=== PATIENT | male | born 1955 | race Two or more races ===

== ENCOUNTER 2025-02-19 03:53 | Inpatient (IN) | payer OTHER, MEDICAID ==
[~2025-02-19] VITALS: Ht 175.3 cm; Wt 98.2 kg
[2025-02-19 04:19] VITALS: PULSE 65; RESP 12; O2SAT 96
--- NOTE | 2025-02-19 04:53 | ED.PDOC ---
History of Present Illness HPI Comments 69 y/o obese M is BIBA from private residence for c/c of left chest wound. Patient reports on his surgical wound site opening yesterday morning, after having a pacemaker placed by his potable water treatment operator, Dr. Rene, 1 week ago. He comments on having uncontrolled bleeding initial bleeding that he awoke to, which was controlled following wound dressing placement by EMS personnel. Patient states on this being the second time on the stitching coming on done since yesterday, with the company ED visit at [facility]. He states later to CT chest at the hospital and discharged him home and told him his results were negative. Patient denies any further acute symptoms at this time. He is on Eliquis, however states that he did not take his dose last night due to bleeding. He denies any fever, cough, chest pain, shortness of breath, nausea, vomiting, headache, dizziness. Chief Complaint: Wound Check Time Seen by MD: 04:00 Reviewed Notes: Nurses Notes, Supervisor Gear Repair Notes, Medications, Allergies Allergies: Coded Allergies: NO KNOWN ALLERGIES (Unverified , 02/19/25) Information Source: Patient, Emergency Med Personnel Mode of Arrival: EMS Severity: Moderate Timing: Hours Duration: Since onset Prehospital treatment: 12 Lead EKG, Stereotype Molder, Other (Wound dressing) Past Medical History Past Medical History (Other): History of Eliquis use Surgical History: Pacemaker Family History Family History: Unknown All Other Systems: Reviewed and Negative (Comprehensive review of systems are negative unless otherwise stated in HPI) Physical Exam General Appearance: No Apparent Distress, Obese HEENT: Normal ENT Inspection, Pharynx Normal, TMs Normal Neck: Full Range of Motion, Non-Tender, Normal, Normal Inspection Respiratory: Chest Non-Tender, Lungs Clear, No Accessory Muscle Use, No Respiratory Distress, Normal Breath Sounds Cardiovascular: No Edema, No JVD, No Murmur, No Gallop, Normal Peripheral Pulses, Regular Rate/Rhythm Breast Exam: Deferred Gastrointestinal: No Organomegaly, Non Tender, No Pulsatile Mass, Normal Bowel Sounds, Soft Genitalia: Deferred Pelvic: Deferred Rectal: Deferred Extremities: No calf tenderness, Normal capillary refill, Normal inspection, Normal range of motion, Non-tender, No pedal edema Musculoskeletal : Apperance: Normal Neurologic: Alert, shop teacher II-XII nml as Tested, No Motor Deficits, Normal Affect, Normal Mood, No Sensory Deficits Cerebellar Function: Normal Reflexes: Normal Skin: Bruises (Large hematoma to left chest wall with wound dehiscence), Dry, Normal Color, Warm Lymphatic: No Adenopathy Was a procedure done? Was a procedure done?: No Differential Dx Considerations may include: Hematoma, ecchymosis, contusions, pacemaker procedure postop complication, wound dehiscence, among others X-Ray, Labs, Meds, VS Vital Signs Date Time Temp Pulse Resp B/P (MAP) Pulse Ox O2 Delivery O2 Flow Rate FiO2 02/19/25 04:19 65 12 96 Room Air* 0 21 02/19/25 04:18 97.9 65 12 149/87 (107) 96 97.9 02/19/25 04:02 98.2 72 18 122/82 98 98.2 Lab Test 02/19/25 04:59 Range/Units White Blood Count 6.9 4.4-10.8 10^3/uL Red Blood Count 3.67 L 4.5-5.90 10^6/uL Hemoglobin 11.0 L 13.5-17.5 g/dL Hematocrit 33.4 L 41.0-53.0 % Mean Corpuscular Volume 90.9 80.0-100.0 fL Mean Corpuscular Hemoglobin 30.1 28.0-32.0 pg Mean Corpuscular Hemoglobin Concent 33.1 32.0-36.0 g/dL Red Cell Distribution Width 15.8 H 11.8-14.3 % Platelet Count 85 L 140-450 10^3/uL Mean Platelet Volume 11.6 H 6.9-10.8 fL Neutrophils (%) (Auto) 57.8 37.0-80.0 % Lymphocytes (%) (Auto) 13.9 10.0-50.0 % Monocytes (%) (Auto) 27.8 H 0.0-12.0 % Eosinophils (%) (Auto) 0.0 0.0-7.0 % Basophils (%) (Auto) 0.5 0.0-2.0 % Neutrophils # (Auto) 4.0 1.6-8.6 10 ^3/uL Lymphocytes # (Auto) 1.0 0.4-5.4 10 ^3/uL Monocytes # (Auto) 1.9 H 0-1.3 10 ^3/uL Eosinophils # (Auto) 0 0-0.8 10 ^3/uL Basophils # (Auto) 0 0-0.2 10 ^3/uL Nucleated Red Blood Cells 0.2 % Prothrombin Time 12.9 H 9.3-11.8 sec Prothrombin Time INR 1.24 H 0.9-1.15 Activated Partial Thromboplast Time 32.3 24.5-34.5 SEC Sodium Level 140 136-145 mmol/L Potassium Level 3.7 3.5-5.1 mmol/L Chloride Level 107 98-107 mmol/L Carbon Dioxide Level 24 20-31 mmol/L Anion Gap 9 5-15 Blood Urea Nitrogen 18 9-23 mg/dL Creatinine 0.97 0.700-1.30 mg/dL Glomerular Filtration Rate Calc 86 >90 mL/min BUN/Creatinine Ratio 18.6 10.0-20.0 Serum Glucose 150 H 74-106 mg/dL Calcium Level 8.3 L 8.7-10.4 mg/dL X-Ray, Labs, Meds, VS Comment Patient presenting with persistent bleeding and will dehiscence from pacemaker surgical site done 1 week ago. Patient with wound dehiscence and large hematoma with ecchymoses on chest wall. Lab work (CBC, BMP) to evaluate for evidence of severe anemia, electrolyte abnormality including hypokalemia, hyperkalemia, hypernatremia, hyponatremia, hyperglycemia, hypoglycemia, etc. Chest x-ray to evaluate for pneumonia, pneumothorax with volume overload. Spoke to Dr. Rene, who recommends broad-spectrum IV antibiotics and admission for further management. Re-evaluate Social determinant surveillance affecting care: Social determinants of health that will affect the patient's care: Poor health literacy (additional time provided an explanation) Poor access to outpatient care/followup (provided outpatient resources) Time of 1ST Reevaluation: 04:40 Reevaluation 1ST: Unchanged Patient Education/Counseling: Diagnosis, Treatment Family Education/Counseling: No Family Present SEPSIS Sepsis Screen Date sepsis recognized/suspect: Feb 19, 2025 Time Sepsis recognized/suspect: 419 Recent Procedure: Yes On Antibiotic Therapy: No Respiratory Rate >20: Yes Heart Rate >90: No Temp<36 C (96.8 F) or >38.3 C: No SBP <90 or MAP <65 mmHG: No New Acute Mental Status Change: No Is the patient on CPAP, BIPAP,: No Physician Orders Chest Portable (02/19/25 04:13) Blood Culture (02/19/25 04:52) Vital Signs Date Time Temp Pulse Resp B/P (MAP) Pulse Ox O2 Delivery O2 Flow Rate FiO2 02/19/25 04:19 65 12 96 Room Air* 0 21 02/19/25 04:18 97.9 65 12 149/87 (107) 96 97.9 02/19/25 04:02 98.2 72 18 122/82 98 98.2 Laboratory Tests Test 02/19/25 04:59 White Blood Count 6.9 10^3/uL (4.4-10.8) Departure 1 Departure Time of Disposition: 05:57 (On reassessment, patient's labs and imaging were unremarkable. Spoke to Dr. Rene, from Cardiology, who recommends admission with IV antibiotics.) Impression: Primary Impression: Chest wall hematoma Additional Impression: Wound dehiscence Disposition: ADMITTED INPATIENT Admit to: Med Surg Condition: Serious Critical Care Note Critical Care Time?: No Stability Stability form required: No Heart Score Heart Score: Heart Score Response (Comments) Value History N/A 0 EKG N/A 0 Age N/A 0 Risk Factors N/A 0 Troponin N/A 0 Total 0 I personally scribed for KEILY LIVINGSTON MD ([email or web address]) on 02/19/25 at 04:53. Electronically submitted by Dayron Orellana [email or web address]). KEILY LIVINGSTON MD Feb 19, 2025 04:53
[2025-02-19] MEDS ORDERED: PIPERACILLIN-TAZOB 3.375GM 100 ML IV ONE (05:00)
[2025-02-19] MEDS ORDERED: VANCOMYCIN 1GM/250ML KIT 250 ML IV ONE (05:00)
[2025-02-19 05:31] LABS: INR 1.24 (0.9-1.15); Partial Thromboplastin Time 32.3 SEC (24.5-34.5); Prothrombin Time 12.9 sec (9.3-11.8)
[2025-02-19 05:33] LABS: Chloride 107 mmol/L (98-107); Potassium 3.7 mmol/L (3.5-5.1); Sodium 140 mmol/L (136-145)
[2025-02-19 05:34] LABS: Anion Gap 9 (5-15); Carbon Dioxide 24 mmol/L (20-31)
[2025-02-19 05:39] LABS: BUN/Creatinine Ratio 18.6 (10.0-20.0); Blood Urea Nitrogen 18 mg/dL (9-23)
--- NOTE | 2025-02-19 05:40 | DVH ---
CHEST RADIOGRAPH Indication: chest pain Technique: Single frontal view of the chest was obtained COMPARISON: XR CHEST 2 VIEW on DOS: 01/31/25, XR CHEST 2 VIEW on DOS: 05/31/24 FINDINGS: Lines and Tubes: None. Left anterior chest wall dual lead cardiac pacing device. Lungs: Clear Pleura: No effusion. No pneumothorax. Cardiomediastinal contours: Unremarkable Bones: Unremarkable IMPRESSION: 1. No radiographic evidence of acute cardiopulmonary abnormality.
[2025-02-19 05:41] LABS: Hematocrit 33.4 % (41.0-53.0); Hemoglobin 11.0 g/dL (13.5-17.5); Mean Corpuscular Hemoglobin 30.1 pg (28.0-32.0); Mean Corpuscular Volume 90.9 fL (80.0-100.0); Nucleated Red Blood Cells % 0.2 %
[2025-02-19 05:49] LABS: Calcium 8.3 mg/dL (8.7-10.4); Glucose 150 mg/dL (74-106)
[2025-02-19] MEDS: VANCOMYCIN 1GM/250ML KIT 250 ML IV ONE (06:06)
[2025-02-19] MEDS: PIPERACILLIN-TAZOB 3.375GM 100 ML IV ONE (08:11)
[2025-02-19 11:30] VITALS: PULSE 65; RESP 16; O2SAT 96
[2025-02-19] MEDS ORDERED: ONDANSETRON HCL 4 MG/2 ML VIAL IV PRN (11:30)
[2025-02-19] MEDS ORDERED: NITROGLYCERIN 0.4 MG SL TAB SL PRN (11:30)
[2025-02-19] MEDS ORDERED: ACETAMINOPHEN 325 MG TAB PO PRN (11:30)
--- NOTE | 2025-02-19 11:36 | DVHHP2 ---
History of Present Illness History of Present Illness 69 y/o obese M is BIBA from private residence for c/c of left chest wound. Patient reports on his surgical wound site opening yesterday morning, after having a pacemaker placed by his [employer] recruiter, Dr. Rene, 1 week ago. He comments on having uncontrolled bleeding initial bleeding that he awoke to, which was controlled following wound dressing placement by EMS personnel. Patient states on this being the second time on the stitching coming on done since yesterday, with the company ED visit at [facility]. He states later to CT chest at the hospital and discharged him home and told him his results were negative. Patient denies any further acute symptoms at this time. He is on Eliquis, however states that he did not take his dose last night due to bleeding. He denies any fever, cough, chest pain, shortness of breath, nausea, vomiting, headache, dizziness. Cardiovascular: AFIB, HTN Past Surgical History: Other (Pacemaker placement two weeks ago) Family History: Hyperlipidemia, Hypertension Smoke: No ALCOHOL: occassional Lives: with Family Review of Systems Review of Systems No fevers chills or sweats. No chest pain shortness for breath. Other review of systems reviewed normal. Allergies: Coded Allergies: NO KNOWN ALLERGIES (Unverified , 02/19/25) Medications Current Medications Medications Dose Ordered Sig/Malika Route Start Time Stop Time Status Last Admin Dose Admin Nitroglycerin 0.4 mg Q5MINP PRN SL 02/19/25 11:30 UNV Morphine Sulfate 2 mg Q30M PRN IV 02/19/25 11:30 UNV Piperacillin Sod/ Tazobactam Sod 100 ml @ 25 mls/hr Q8HR IV 02/19/25 14:00 UNV Morphine Sulfate 2 mg Q4HPRN PRN IV 02/19/25 11:30 UNV Ondansetron HCl 4 mg Q6HPRN PRN IV 02/19/25 11:30 UNV Acetaminophen 650 mg Q6HP PRN PO 02/19/25 11:30 UNV Dextrose/Sodium Chloride 1,000 ml @ 75 mls/hr [id number] IV 02/19/25 11:30 UNV Exam Vital Signs Vital Signs Date Time Temp Pulse Resp B/P (MAP) Pulse Ox O2 Delivery O2 Flow Rate FiO2 02/19/25 10:00 62 19 125/83 (97) 98 02/19/25 08:00 Room Air* 0 21 02/19/25 07:59 98.2 98.2 Exam Alert awake oriented x3. Comfortable in bed without distress. HEENT neck supple no JVD pupils equal round react to light. Heart regular rate and rhythm S1-S2 without murmurs. Lungs fair air movement without rales wheezes. Chest tube will expansion. Abdomen soft nontender positive bowel sounds. Extremities no edema positive pulses. His left anterior chest pacemaker areas examined and shows small hematoma with a bruising but no significant drainage or foul smell noted. No signs of acute infection identified. Labs/Xrays Labs Test 02/19/25 04:59 Range/Units White Blood Count 6.9 4.4-10.8 10^3/uL Red Blood Count 3.67 L 4.5-5.90 10^6/uL Hemoglobin 11.0 L 13.5-17.5 g/dL Hematocrit 33.4 L 41.0-53.0 % Mean Corpuscular Volume 90.9 80.0-100.0 fL Mean Corpuscular Hemoglobin 30.1 28.0-32.0 pg Mean Corpuscular Hemoglobin Concent 33.1 32.0-36.0 g/dL Red Cell Distribution Width 15.8 H 11.8-14.3 % Platelet Count 85 L 140-450 10^3/uL Mean Platelet Volume 11.6 H 6.9-10.8 fL Neutrophils (%) (Auto) 57.8 37.0-80.0 % Lymphocytes (%) (Auto) 13.9 10.0-50.0 % Monocytes (%) (Auto) 27.8 H 0.0-12.0 % Eosinophils (%) (Auto) 0.0 0.0-7.0 % Basophils (%) (Auto) 0.5 0.0-2.0 % Neutrophils # (Auto) 4.0 1.6-8.6 10 ^3/uL Lymphocytes # (Auto) 1.0 0.4-5.4 10 ^3/uL Monocytes # (Auto) 1.9 H 0-1.3 10 ^3/uL Eosinophils # (Auto) 0 0-0.8 10 ^3/uL Basophils # (Auto) 0 0-0.2 10 ^3/uL Nucleated Red Blood Cells 0.2 % Prothrombin Time 12.9 H 9.3-11.8 sec Prothrombin Time INR 1.24 H 0.9-1.15 Activated Partial Thromboplast Time 32.3 24.5-34.5 SEC Sodium Level 140 136-145 mmol/L Potassium Level 3.7 3.5-5.1 mmol/L Chloride Level 107 98-107 mmol/L Carbon Dioxide Level 24 20-31 mmol/L Anion Gap 9 5-15 Blood Urea Nitrogen 18 9-23 mg/dL Creatinine 0.97 0.700-1.30 mg/dL Glomerular Filtration Rate Calc 86 >90 mL/min BUN/Creatinine Ratio 18.6 10.0-20.0 Serum Glucose 150 H 74-106 mg/dL Calcium Level 8.3 L 8.7-10.4 mg/dL SEPSIS Sepsis Screen Date sepsis recognized/suspect: Feb 19, 2025 Time Sepsis recognized/suspect: 800 Recent Procedure: Yes On Antibiotic Therapy: No Respiratory Rate >20: No Heart Rate >90: No Temp<36 C (96.8 F) or >38.3 C: No SBP <90 or MAP <65 mmHG: No New Acute Mental Status Change: No Is the patient on CPAP, BIPAP,: No Physician Orders Chest Portable (02/19/25 04:13) Blood Culture (02/19/25 04:52) Admit (02/19/25 11:28) * Cardiology Consult (02/19/25 11:28) Nitroglycerin Sublingual (Ntrostat Subli (02/19/25 11:30) Morphine Sulfate Injection (02/19/25 11:30) Stat Ekg For Chest Pain (02/19/25 11:28) Notify Md Of Changes From Base (02/19/25 11:28) Heating Element Repairer For 24 Hours (02/19/25 11:28) Emergency Dysrhythmia Protocol (02/19/25 11:28) Rhythm Strips Once Every Shift (02/19/25 11:28) Oxygen By Nasal Cannula (02/19/25 11:28) Npo Except For Medications (02/19/25 11:28) Npo (Nothing By Mouth) Diet (02/19/25 Lunch) Piperacillin-Tazob 3.375gm (Zosyn 3.375g (02/19/25 14:00) Morphine Sulfate Injection (02/19/25 11:30) Ondansetron Hcl (Zofran) (02/19/25 11:30) Acetaminophen Tablet (Tylenol Tablet) (02/19/25 11:30) D5w/Sod Chlo 0.9% (D5w Ns 0.9%) (02/19/25 11:30) Vital Signs Date Time Temp Pulse Resp B/P (MAP) Pulse Ox O2 Delivery O2 Flow Rate FiO2 02/19/25 10:00 62 19 125/83 (97) 98 02/19/25 08:00 Room Air* 0 21 02/19/25 07:59 98.2 65 17 120/73 (89) 96 98.2 02/19/25 06:00 65 26 123/86 (98) 96 02/19/25 04:19 65 12 96 Room Air* 0 21 02/19/25 04:18 97.9 65 12 149/87 (107) 96 97.9 02/19/25 04:02 98.2 72 18 122/82 98 98.2 Laboratory Tests Test 02/19/25 04:59 White Blood Count 6.9 10^3/uL (4.4-10.8) Medications Medications Dose Ordered Sig/Malika Route Start Time Stop Time Status Last Admin Dose Admin Piperacillin Sod/ Tazobactam Sod 100 ml @ 100 mls/hr ONCE ONCE IV 02/19/25 06:00 02/19/25 06:59 DC 02/19/25 08:11 100 MLS/HR Vancomycin HCl 250 ml @ 250 mls/hr ONCE ONCE IV 02/19/25 06:00 02/19/25 06:59 DC 02/19/25 06:06 250 MLS/HR Assessment/Plan Assessment/Plan Given his small hematoma with the bleeding we will admit him to the hospital and have his intel recruiter evaluate him. Meantime we will continue to hold his blood thinner he is taking for atrial fibrillation due to bleeding. Hemoglobin is stable. Empiric antibiotics to prevent any infection. Otherwise resume his home medications. Cardiac consultation. Further clinical management per clinical course and recommendations from the intel recruiter. Plan discussed with: Patient, Other My Orders Orders - MAXIMO PORTER MD Procedure Category Date Status Time Admit ADMIT 02/19/25 Transmitted 11:28 * Cardiology Consult CONS 02/19/25 Transmitted 11:28 Nitroglycerin PHA 02/19/25 Logged Sublingual (Ntrostat 11:30 Morphine Sulfate PHA 02/19/25 Logged Injection 11:30 Stat Ekg For Chest JUAN CARLOS 02/19/25 In Process Pain 11:28 Notify Of Changes JUAN CARLOS 02/19/25 In Process From Base 11:28 Heating Element Repairer For JUAN CARLOS 02/19/25 In Process 24 Hours 11:28 Emergency Dysrhythmia JUAN CARLOS 02/19/25 In Process Protocol 11:28 Rhythm Strips Once JUAN CARLOS 02/19/25 In Process Every Shift 11:28 Oxygen By Nasal RT 02/19/25 Transmitted Cannula 11:28 Npo Except For JUAN CARLOS 02/19/25 In Process Medications 11:28 Npo (Nothing By DIET 02/19/25 Transmitted Mouth) Diet Lunch Piperacillin-Tazob PHA 02/19/25 Logged 3.375gm (Zosyn 3.375g 14:00 Morphine Sulfate PHA 02/19/25 Logged Injection 11:30 Ondansetron Hcl PHA 02/19/25 Logged (Zofran) 11:30 Acetaminophen Tablet PHA 02/19/25 Logged (Tylenol Tablet) 11:30 D5w/Sod Chlo 0.9% PHA 02/19/25 Logged (D5w Ns 0.9%) 11:30 Problem List: (1) Chest wall hematoma (2) Wound dehiscence MAXIMO PORTER MD Feb 19, 2025 11:36
[2025-02-19] MEDS ORDERED: MORPHINE SULFATE 4 MG/ML SYR/VIAL IV PRN ×2 (12:45)
[2025-02-19] MEDS: D5W/SOD CHLO 0.9% 1,000 ML IV SCH (13:36)
[2025-02-19] MEDS: PIPERACILLIN-TAZOB 3.375GM 100 ML IV SCH (14:00)
--- NOTE | 2025-02-19 17:18 | DVHINCON2 ---
Date Seen: Feb 19, [address] Rod Reason for Consultation Pacemaker pocket hematoma History of Present Illness 69-year-old gentleman with a noted history of underlying cardiomyopathy who had an ICD placed several years ago and who has pacemaker was at [facility] had a pacemaker generator replacement as an outpatient. He was at a surgical center where I replaced his generator. He does have underlying atrial fibrillation was on Eliquis. He restarted his Eliquis shortly after his discharge from the surgical center. He developed a large hematoma. There was slight bleeding. He came for further evaluation and treatment. No fevers chills. No evidence for infection of the hematoma. He was previously seen at [facility] and was subsequently discharged. Past Medical History Past medical history significant for hypertension. Cardiomyopathy. Status post ICD. Atrial fibrillation. Past Surgical History Status post pacemaker. Allergies: Coded Allergies: NO KNOWN ALLERGIES (Unverified , 02/19/25) Current Medications Current Medications Medications (Trade) Dose Ordered Sig/Malika Route PRN Reason Start Time Stop Time Status Last Admin Nitroglycerin (Ntrostat Sublingual) 0.4 mg Q5MINP PRN SL FOR CHEST PAIN 02/19/25 11:30 Morphine Sulfate 2 mg Q30M PRN IV FOR CHEST PAIN 02/19/25 12:45 Piperacillin Sod/ Tazobactam Sod 100 ml @ 25 mls/hr Q8HR IV 02/19/25 14:00 02/19/25 14:00 Morphine Sulfate 2 mg Q4HPRN PRN IV SEVERE PAIN (7-10 PAIN SCALE) 02/19/25 12:45 Ondansetron HCl (Zofran) 4 mg Q6HPRN PRN IV NAUSEA / VOMITING 02/19/25 11:30 Acetaminophen (Tylenol Tablet) 650 mg Q6HP PRN PO MILD PAIN (1-3 PAIN SCALE) 02/19/25 11:30 Dextrose/Sodium Chloride 1,000 ml @ 75 mls/hr [id number] IV 02/19/25 11:30 02/19/25 13:36 Vital Signs Vital Signs Date Time Temp Pulse Resp B/P (MAP) Pulse Ox O2 Delivery O2 Flow Rate FiO2 02/19/25 15:19 65 18 110/84 (93) 98 02/19/25 11:30 Room Air* 0 21 02/19/25 07:59 98.2 98.2 Physical Exam Vital signs are as noted. HEENT examination is otherwise unremarkable. Lungs are clear. Heart exam is regular. Extremities well perfused. Pacemaker pocket on the left upper chest appears to be enlarged. There is an underlying hematoma. It is mildly tender. Not hyperemic. Ecchymotic. There is a mild dehiscence proximally a cm and a half involving the skin but does not appear to involve the subcutaneous tissue or fascia. No significant warmth or infection noted. No purulent drainage. Heart exam reveals regular S1-S2 soft S4. Abdominal examination is unremarkable. Extremities reveal adequate perfusion without clubbing or cyanosis. No significant edema. Neurologically intact. Integumentary is normal. Labs/Diagnostic Data Labs Test 02/19/25 04:59 Range/Units White Blood Count 6.9 4.4-10.8 10^3/uL Red Blood Count 3.67 L 4.5-5.90 10^6/uL Hemoglobin 11.0 L 13.5-17.5 g/dL Hematocrit 33.4 L 41.0-53.0 % Mean Corpuscular Volume 90.9 80.0-100.0 fL Mean Corpuscular Hemoglobin 30.1 28.0-32.0 pg Mean Corpuscular Hemoglobin Concent 33.1 32.0-36.0 g/dL Red Cell Distribution Width 15.8 H 11.8-14.3 % Platelet Count 85 L 140-450 10^3/uL Mean Platelet Volume 11.6 H 6.9-10.8 fL Neutrophils (%) (Auto) 57.8 37.0-80.0 % Lymphocytes (%) (Auto) 13.9 10.0-50.0 % Monocytes (%) (Auto) 27.8 H 0.0-12.0 % Eosinophils (%) (Auto) 0.0 0.0-7.0 % Basophils (%) (Auto) 0.5 0.0-2.0 % Neutrophils # (Auto) 4.0 1.6-8.6 10 ^3/uL Lymphocytes # (Auto) 1.0 0.4-5.4 10 ^3/uL Monocytes # (Auto) 1.9 H 0-1.3 10 ^3/uL Eosinophils # (Auto) 0 0-0.8 10 ^3/uL Basophils # (Auto) 0 0-0.2 10 ^3/uL Nucleated Red Blood Cells 0.2 % Prothrombin Time 12.9 H 9.3-11.8 sec Prothrombin Time INR 1.24 H 0.9-1.15 Activated Partial Thromboplast Time 32.3 24.5-34.5 SEC Sodium Level 140 136-145 mmol/L Potassium Level 3.7 3.5-5.1 mmol/L Chloride Level 107 98-107 mmol/L Carbon Dioxide Level 24 20-31 mmol/L Anion Gap 9 5-15 Blood Urea Nitrogen 18 9-23 mg/dL Creatinine 0.97 0.700-1.30 mg/dL Glomerular Filtration Rate Calc 86 >90 mL/min BUN/Creatinine Ratio 18.6 10.0-20.0 Serum Glucose 150 H 74-106 mg/dL Calcium Level 8.3 L 8.7-10.4 mg/dL Assessment Mild dehiscence of wound. Underlying hematoma. Underlying atrial fibrillation. Coagulopathy secondary to Eliquis. Hypertension. Atrial fibrillation. Cardiomyopathy. Plan/Recommendation We will admit patient in initiate antibiotics. We will monitor hematoma of the next day or so. Consider evacuation of hematoma if necessary. Plan discussed with: Patient NYHA Physical activity limitations: NA Date of Service: Feb 19, 2025 Billing Provider: EFRA MAX Sr., MD Cardiology Common Codes: [id number] INP/OBS CARE (High) EFRA MAX Sr., MD Feb 19, 2025 17:18
[2025-02-19 21:46] VITALS: BP 125/85; PULSE 65; RESP 18; TEMP 98.2; O2SAT 98
[2025-02-19 23:44] VITALS: BP 125/85; PULSE 65; RESP 18; TEMP 98.2; O2SAT 98
[2025-02-20] VITALS (8 sets, daily range): BP systolic 102–141; BP diastolic 64–90; PULSE 64–65; RESP 17–19; TEMP 97.3–98.8; O2SAT 94–98
[2025-02-20] MEDS ORDERED: CARV6.2551 PO (13:14)
[2025-02-20] MEDS ORDERED: ATOR20TA50 PO (13:14)
[2025-02-20] MEDS ORDERED: DAPA1TAB4 PO (13:14)
[2025-02-20] MEDS ORDERED: LOSA-534 PO (13:14)
[2025-02-20] MEDS ORDERED: PIO30T PO (13:14)
[2025-02-20] MEDS ORDERED: FURO20TA3 PO (13:14)
[2025-02-20] MEDS ORDERED: POTA-220 PO (13:14)
[2025-02-20] MEDS ORDERED: HYDR50TA47 PO (13:14)
[2025-02-20] MEDS ORDERED: AML5T PO (13:14)
[2025-02-20] MEDS ORDERED: DEXTROSE (50%) 50ML SYRG IV PRN (13:15)
--- NOTE | 2025-02-20 13:34 | DVHPN2 ---
Progress Note - Dictate Date Seen: Feb 20, 2025 Medical Necessity Reason Pt with a Central, PICC or Fol: No Subjective He is clinically stable. Apparently it did not not follow instructions post discharge after pacemaker replacement. Patient slept on his left side and also moving his left shoulder doing yard work. Subsequently he noted significant bleeding. Currently no signs of active bleeding. Hematoma appears to be stable. Hemoglobin stable. Evaluated by food assembler commissary kitchen recommending supportive care and treatment with ice packs. vital signs Vital Sign Date Time Temp Pulse Resp B/P (MAP) Pulse Ox O2 Delivery O2 Flow Rate FiO2 02/20/25 12:28 98.8 65 19 132/83 (99) 97 98.8 02/20/25 08:00 Room Air* 0 21 Total Intake and Output 02/19/25 02/19/25 02/20/25 15:00 23:00 07:00 Intake Total 175 ml 100 ml 300 ml Output Total 150 ml Balance 175 ml 100 ml 150 ml medications Current Medications Medications Dose Ordered Sig/Malika Route Start Time Stop Time Status Last Admin Dose Admin Nitroglycerin 0.4 mg Q5MINP PRN SL 02/19/25 11:30 Morphine Sulfate 2 mg Q30M PRN IV 02/19/25 12:45 Piperacillin Sod/ Tazobactam Sod 100 ml @ 25 mls/hr Q8HR IV 02/19/25 14:00 02/20/25 05:08 25 MLS/HR Morphine Sulfate 2 mg Q4HPRN PRN IV 02/19/25 12:45 Ondansetron HCl 4 mg Q6HPRN PRN IV 02/19/25 11:30 Acetaminophen 650 mg Q6HP PRN PO 02/19/25 11:30 Amlodipine Besylate 5 mg DAILY PO 02/21/25 10:00 Atorvastatin Calcium 20 mg DAILY PO 02/21/25 10:00 Furosemide 20 mg DAILY PO 02/21/25 10:00 Losartan Potassium 50 mg DAILY PO 02/21/25 10:00 Potassium Chloride 20 meq DAILY PO 02/21/25 10:00 Carvedilol 6.25 mg Q12HR PO 02/20/25 22:00 Patient Own Medication 10 mg DAILY PO 02/21/25 10:00 UNV Patient Own Medication 50 mg DAILY PO 02/21/25 10:00 UNV Diagnostic Test (Pha) 1 strip ACHS 02/20/25 17:00 Insulin Human Regular ACHS SC 02/20/25 17:00 Dextrose 50 ml UD PRN IV 02/20/25 13:15 objective Left anterior chest covered with a dressing. No drainage or discharge noted. Significant bruising and swelling noted. laboratory and microbiology Laboratory Tests 02/19/25 04:59 Test 02/19/25 04:59 Range/Units Serum Glucose 150 H 74-106 mg/dL Assessment/Plan Continue empiric prophylactic antibiotics. Patient does not have any evidence of active infection. Monitor serial hemoglobin. Patient now has a sling to his left arm to minimize the movements. He is advised to sleep on his right side. Otherwise continue rest of supportive care and treatment. Further clinical management per clinical course and recommendations from the food assembler commissary kitchen. Discussed with the patient as well as nurse at bedside regarding care plan. Problems(with codes): (1) Chest wall hematoma (2) Wound dehiscence Plan discussed with: Patient MAXIMO PORTER MD Feb 20, 2025 13:34
[2025-02-20] MEDS: InsuLIN REG 1unit/0.01ml Soln (100units/ml) SC SCH (17:00)
[2025-02-20] MEDS: ACCU-CHEK COMFORT CURVE STRIP VI SCH (17:00)
[2025-02-20] MEDS: MUPIROCIN 2% OINT 15gm or 22gm FOR MRSA NARES EACHNOSTRI SCH (21:18)
[2025-02-20] MEDS: CARVEDILOL 3.125 MG TAB PO SCH (21:28)
[2025-02-21] VITALS (7 sets, daily range): BP systolic 106–137; BP diastolic 67–90; PULSE 64–74; RESP 14–18; TEMP 97.1–98.3; O2SAT 96–99
[2025-02-21 05:40] LABS: Hematocrit 31.6 % (41.0-53.0); Hemoglobin 10.5 g/dL (13.5-17.5); Mean Corpuscular Hemoglobin 30.1 pg (28.0-32.0); Mean Corpuscular Volume 90.9 fL (80.0-100.0)
[2025-02-21 06:52] LABS: Giant Platelets Moderate; Total Cells Counted 100.0 (100)
[2025-02-21] MEDS: ATORVASTATIN 20 MG TAB PO SCH (09:21)
[2025-02-21] MEDS: POTASSIUM CHL 20 Meq TABLET PO SCH (09:24)
[2025-02-21] MEDS: DAPAGLIFLOZIN PROPANEDIOL 10 MG PO SCH (09:26)
[2025-02-21] MEDS: FUROSEMIDE 20 MG TAB PO SCH (09:31)
[2025-02-21] MEDS: LOSARTAN POTASSIUM 50 MG TAB PO SCH (09:32)
[2025-02-21] MEDS ORDERED: DOXY100C79 PO (14:34)
[2025-02-21] MEDS ORDERED: MUPI2OIN2 (14:34)
--- NOTE | 2025-02-21 14:40 | DVHPN2 ---
Progress Note - Dictate Date Seen: Feb 21, 2025 Medical Necessity Reason Pt with a Central, PICC or Fol: No Subjective He is clinically stable. Re-evaluated by contact center specialist today and no hematoma evacuation recommended. Continue ice packs and warm compressors at home. vital signs Vital Sign Date Time Temp Pulse Resp B/P (MAP) Pulse Ox O2 Delivery O2 Flow Rate FiO2 02/21/25 12:56 97.6 64 18 110/78 (89) 96 97.6 02/21/25 08:00 Room Air* 0 21 Total Intake and Output 02/20/25 02/20/25 02/21/25 15:00 23:00 07:00 Intake Total 400 ml 500 ml Output Total 800 ml 1200 ml Balance -400 ml -700 ml medications Current Medications Medications Dose Ordered Sig/Malika Route Start Time Stop Time Status Last Admin Dose Admin Nitroglycerin 0.4 mg Q5MINP PRN SL 02/19/25 11:30 Morphine Sulfate 2 mg Q30M PRN IV 02/19/25 12:45 Morphine Sulfate 2 mg Q4HPRN PRN IV 02/19/25 12:45 Ondansetron HCl 4 mg Q6HPRN PRN IV 02/19/25 11:30 Acetaminophen 650 mg Q6HP PRN PO 02/19/25 11:30 Amlodipine Besylate 5 mg DAILY PO 02/21/25 10:00 02/21/25 09:23 5 MG Atorvastatin Calcium 20 mg DAILY PO 02/21/25 10:00 02/21/25 09:21 20 MG Furosemide 20 mg DAILY PO 02/21/25 10:00 02/21/25 09:31 20 MG Losartan Potassium 50 mg DAILY PO 02/21/25 10:00 02/21/25 09:32 50 MG Potassium Chloride 20 meq DAILY PO 02/21/25 10:00 02/21/25 09:24 20 MEQ Carvedilol 6.25 mg Q12HR PO 02/20/25 22:00 02/21/25 10:24 6.25 MG Patient Own Medication 10 mg DAILY PO 02/21/25 10:00 02/21/25 09:26 10 MG Hydralazine HCl 50 mg DAILY PO 02/21/25 10:00 02/21/25 09:26 50 MG Diagnostic Test (Pha) 1 strip ACHS 02/20/25 17:00 02/21/25 06:25 1 STRIP Insulin Human Regular ACHS SC 02/20/25 17:00 02/21/25 06:28 2 UNITS Dextrose 50 ml UD PRN IV 02/20/25 13:15 Mupirocin 1 applic BID EACHNOSTRI 02/20/25 22:00 02/25/25 21:59 02/21/25 09:36 1 APPLIC Doxycycline Monohydrate 100 mg Q12HR PO 02/21/25 22:00 UNV objective Left anterior chest covered with a dressing. No drainage or discharge noted. Significant bruising and swelling noted. laboratory and microbiology Laboratory Tests 02/21/25 05:05 02/19/25 04:59 Test 02/19/25 04:59 Range/Units Serum Glucose 150 H 74-106 mg/dL Assessment/Plan Continue empiric prophylactic antibiotics. We will arrange for home health for dressing changes in the pacemaker site upon discharge. Advised patient to keep his sling in the left arm for two weeks. Advised to stop Eliquis for next 6 days due to hematoma and bruising. Otherwise continue rest of supportive care and treatment. If he remains stable discharge plan home in the morning. Discussed with the patient and verbalized understanding of discharge care plan. Problems(with codes): (1) Wound dehiscence (2) Chest wall hematoma Plan discussed with: Patient MAXIMO PORTER MD Feb 21, 2025 14:40
--- NOTE | 2025-02-21 16:51 | DVHPN2 ---
Consult Progress Note Date Seen: Feb 21, 2025 Subjective Patient reports: Feels better Review of Systems: HEENT:Normal, CVS:Normal, RESPIRATORY:Normal, GI:Normal, :Normal, MSK:Abnormal (Hematoma left pacer site less tense. Feeling better less painful. No bleeding.) Objective vital signs Vital Sign Date Time Temp Pulse Resp B/P (MAP) Pulse Ox O2 Delivery O2 Flow Rate FiO2 02/21/25 12:56 97.6 64 18 110/78 (89) 96 97.6 02/21/25 08:00 Room Air* 0 21 Total Intake and Output 02/20/25 02/20/25 02/21/25 15:00 23:00 07:00 Intake Total 400 ml 500 ml Output Total 800 ml 1200 ml Balance -400 ml -700 ml medications Current Medications Medications Dose Ordered Sig/Malika Route Start Time Stop Time Status Last Admin Dose Admin Nitroglycerin 0.4 mg Q5MINP PRN SL 02/19/25 11:30 Morphine Sulfate 2 mg Q30M PRN IV 02/19/25 12:45 Morphine Sulfate 2 mg Q4HPRN PRN IV 02/19/25 12:45 Ondansetron HCl 4 mg Q6HPRN PRN IV 02/19/25 11:30 Acetaminophen 650 mg Q6HP PRN PO 02/19/25 11:30 Amlodipine Besylate 5 mg DAILY PO 02/21/25 10:00 02/21/25 09:23 5 MG Atorvastatin Calcium 20 mg DAILY PO 02/21/25 10:00 02/21/25 09:21 20 MG Furosemide 20 mg DAILY PO 02/21/25 10:00 02/21/25 09:31 20 MG Losartan Potassium 50 mg DAILY PO 02/21/25 10:00 02/21/25 09:32 50 MG Potassium Chloride 20 meq DAILY PO 02/21/25 10:00 02/21/25 09:24 20 MEQ Carvedilol 6.25 mg Q12HR PO 02/20/25 22:00 02/21/25 10:24 6.25 MG Patient Own Medication 10 mg DAILY PO 02/21/25 10:00 02/21/25 09:26 10 MG Hydralazine HCl 50 mg DAILY PO 02/21/25 10:00 02/21/25 09:26 50 MG Diagnostic Test (Pha) 1 strip ACHS 02/20/25 17:00 02/21/25 06:25 1 STRIP Insulin Human Regular ACHS SC 02/20/25 17:00 02/21/25 06:28 2 UNITS Dextrose 50 ml UD PRN IV 02/20/25 13:15 Mupirocin 1 applic BID EACHNOSTRI 02/20/25 22:00 02/25/25 21:59 02/21/25 09:36 1 APPLIC Doxycycline Monohydrate 100 mg Q12HR PO 02/21/25 22:00 Examination: GENERAL:Normal, HEENT:Normal, NECK:Normal, LUNGS:Normal, CVS:Normal, ABDOMEN:Normal, MSK:Abnormal (Ecchymotic left pectoral pacer site. No bleeding. Hematoma less tense and softer in appearance and feels softer as well) laboratory and microbiology Laboratory Tests 02/21/25 05:05 02/19/25 04:59 Test 02/19/25 04:59 Range/Units Serum Glucose 150 H 74-106 mg/dL Problem List/Assessment/Plan Problem List/Assessment/Plan Left pacer site hematoma. Hypertension. Cardiomyopathy. Recommendations: Continue with antibiotics. Stable from cardiac standpoint. Continue warm compresses. No need for hematoma evacuation at this time Plan discussed with: Patient Date of Service: Feb 21, 2025 Billing Provider: EFRA MAX Sr., MD Cardiology Common Codes: [id number] INP/OBS CARE (High) EFRA MAX Sr., MD Feb 21, 2025 16:51
[2025-02-21] MEDS: DOXYCYCLINE 100 MG TAB/CAP PO SCH (21:37)
[2025-02-22] VITALS (8 sets, daily range): BP systolic 105–129; BP diastolic 72–90; PULSE 60–66; RESP 16–18; TEMP 97.3–98.5; O2SAT 96–99
--- NOTE | 2025-02-28 12:26 | DVHDS2 ---
Discharge Summary Date of Admission Feb 19, 2025 at 11:28 Date of Discharge: Feb 22, 2025 Labs/Diagnostic Data: Laboratory Results Test 02/22/25 12:07 02/21/25 05:05 02/19/25 04:59 POC Glucose 97 mg/dl (70-106) White Blood Count 4.8 10^3/uL (4.4-10.8) Red Blood Count 3.48 10^6/uL (4.5-5.90) Hemoglobin 10.5 g/dL (13.5-17.5) Hematocrit 31.6 % (41.0-53.0) Mean Corpuscular Volume 90.9 fL (80.0-100.0) Mean Corpuscular Hemoglobin 30.1 pg (28.0-32.0) Mean Corpuscular Hemoglobin Concent 33.1 g/dL (32.0-36.0) Red Cell Distribution Width 15.6 % (11.8-14.3) Platelet Count 104 10^3/uL (140-450) Mean Platelet Volume 11.4 fL (6.9-10.8) Neutrophils (%) (Auto) % (37.0-80.0) Lymphocytes (%) (Auto) % (10.0-50.0) Monocytes (%) (Auto) % (0.0-12.0) Basophils (%) (Auto) % (0.0-2.0) Neutrophils # (Auto) 10 ^3/uL (1.6-8.6) Lymphocytes # (Auto) 10 ^3/uL (0.4-5.4) Monocytes # (Auto) 10 ^3/uL (0-1.3) Differential Total Cells Counted 100.0 (100) Neutrophils % (Manual) 51 (37.0-80.0) Band Neutrophils % (Manual) 0 Lymphocytes % (Manual) 18 (10.0-50.0) Monocytes % (Manual) 27 (0-12) Eosinophils % (Manual) 0 (0-7) Basophils % (Manual) 0 (0.0-2.0) Metamyelocytes % (manual) 1 Myelocytes % (Manual) 3 Promyelocytes % (Manual) 0 Blast Cells % (Manual) 0 Reactive Lymphocytes 0 Platelet Estimate Decrea Large Platelets Few Giant Platelets Moderate Eosinophils (%) (Auto) 0.0 % (0.0-7.0) Eosinophils # (Auto) 0 10 ^3/uL (0-0.8) Basophils # (Auto) 0 10 ^3/uL (0-0.2) Nucleated Red Blood Cells 0.2 % Prothrombin Time 12.9 sec (9.3-11.8) Prothrombin Time INR 1.24 (0.9-1.15) Activated Partial Thromboplast Time 32.3 SEC (24.5-34.5) Sodium Level 140 mmol/L (136-145) Potassium Level 3.7 mmol/L (3.5-5.1) Chloride Level 107 mmol/L (98-107) Carbon Dioxide Level 24 mmol/L (20-31) Anion Gap 9 (5-15) Blood Urea Nitrogen 18 mg/dL (9-23) Creatinine 0.97 mg/dL (0.700-1.30) Glomerular Filtration Rate Calc 86 mL/min (>90) BUN/Creatinine Ratio 18.6 (10.0-20.0) Serum Glucose 150 mg/dL (74-106) Calcium Level 8.3 mg/dL (8.7-10.4) Other Laboratory Tests 02/21/25 05:05 02/19/25 04:59 Brief Hx & Hospital Course: 69 y/o obese M is BIBA from private residence for c/c of left chest wound. Patient reports on his surgical wound site opening yesterday morning, after having a pacemaker placed by his electronic sales and service technician, Dr. Rene, 1 week ago. He comments on having uncontrolled bleeding initial bleeding that he awoke to, which was controlled following wound dressing placement by EMS personnel. Patient states on this being the second time on the stitching coming on done since yesterday, with the company ED visit at [facility]. He states later to CT chest at the hospital and discharged him home and told him his results were negative. Patient denies any further acute symptoms at this time. He is on Eliquis, however states that he did not take his dose last night due to bleeding. He denies any fever, cough, chest pain, shortness of breath, nausea, vomiting, headache, dizziness. He is admitted and evaluated by his electronic sales and service technician. Patient noted to have a hematoma at the pacemaker site therefore he is strictly instructed not to move his arm at all. He is also strictly instructed to not take Eliquis for another five days. Patient apparently was noncompliant did not follow instructions regarding keeping his arm below shoulder and not moving much post pacemaker insertion about a week to 10 days ago. This time patient had a sling placed in his left arm and clear instructions were given verbally to him as well as electronic sales and service technician spoke to him at length regarding follow up as outpatient basis as well. While in the hospital his hemoglobin remained stable. Did not require any transfusions. Hematoma slightly improved. He did not have any signs of infection of the pacemaker site/hematoma site. No drainage or discharge noted. Therefore given no further workup or evaluations or management being done it is felt he could be safely discharged home with close outpatient follow up with his electronic sales and service technician. I have talked with the patient at length during his hospital diagnosis, treatment he received, discharge medications, discharge instructions and follow-up plan of care. He has verbalized understanding of these and agree with the care plan as outlined. Consults/Reason for consult Consult Progress Note Date Seen: Feb 21, 2025 Subjective Patient reports: Feels better Review of Systems: HEENT:Normal, CVS:Normal, RESPIRATORY:Normal, GI:Normal, :Normal, MSK:Abnormal (Hematoma left pacer site less tense. Feeling better less painful. No bleeding.) Problem List/Assessment/Plan Left pacer site hematoma. Hypertension. Cardiomyopathy. Recommendations: Continue with antibiotics. Stable from cardiac standpoint. Continue warm compresses. No need for hematoma evacuation at this time Plan discussed with: Patient Date of Service: Feb 21, 2025 Billing Provider: EFRA RENE Sr., MD Cardiology Common Codes: [id number] INP/OBS CARE (High) EFRA RENE Sr., MD Feb 21, 2025 16:51 Condition at Discharge: Stable Final Diagnosis/Problems List hematoma at pacemaker insertion site, surgical pacemaker site dehiscence Discharge Disposition: Home Discharge Instruct/Medications Diet: Consistent carbohydrate, Cardiac 2g Na,low cholest Diet comment: CCHO AND cARDIAC Activity: No Restrictions, As Tolerated Activity comment: KEEP YOUR lEFT ARM IN SLING FOR NEXT 2 WEEKS Follow Up/Referral: Dr. Edgard shields next week follow up for pacemaker site hematoma and evaluation Medications: STOP Blood thinner Eliquis medication till 02/27/25. Continue other home medications and resume Eliquis from 02/28/2025. Scheduled Amlodipine Besylate (Norvasc Tablet), 1 TAB PO DAILY, (Reported) Atorvastatin Calcium (Atorvastatin Calcium), 1 TAB PO DAILY, (Reported) Carvedilol (Carvedilol), 6.25 MG PO Q12HR, (Reported) Dapagliflozin Propanediol (Farxiga), 10 MG PO DAILY, (Reported) Doxycycline (Monohydrate) (Doxycycline), 100 MG PO BID Furosemide (Furosemide), 20 MG PO DAILY, (Reported) Hydralazine Hcl (Hydralazine Hcl), 50 MG PO DAILY, (Reported) Losartan Potassium (Losartan Potassium), 50 MG PO DAILY, (Reported) Mupirocin (Pseudomonas Fluores (Mupirocin), 2 % NA BID Pioglitazone Hydrochloride (Actos Tablet), 1.5 TAB PO DAILY, (Reported) Potassium Chloride (Klor-Con M20), 20 MEQ PO DAILY, (Reported) Discharge Statement: "Patient was advised to return to the ER or call 911 if any headaches, dizziness, shortness of breath, chest pain, abdominal pain, bleeding, fevers, or worsening of medical condition. Patient was counseled about treatment plan, medications, possible side effects, patientverbalized understanding. All questions were answered to the best of my ability. This discharge took greater then 30 minutes in planning, reviewing documentation, counseling the patient, and discussing with other team members." ASSESSMENT ASSESSMENT Assessment hematoma at pacemaker insertion site, surgical pacemaker site dehiscence MAXIMO PORTER MD Feb 28, 2025 12:26
== END 2025-02-22 18:35 | disposition home health service (06) | DRG 920 ==
LOC: EDBD 03:53 → ER 03:53 → OVERFLOW 11:28 → TELE-EAST 21:26
PROVIDERS: ADMIT Internal Medicine; ATTEND Internal Medicine
DX: T81.30XA Disruption of wound, unspecified, initial encounter (principal); D68.9 Coagulation defect, unspecified; I10 Essential (primary) hypertension; I42.9 Cardiomyopathy, unspecified; I48.91 Unspecified atrial fibrillation; S20.219A Contusion of unspecified front wall of thorax, initial encounter; X58.XXXA Exposure to other specified factors, initial encounter; Y83.1 Surgical operation with implant of artificial internal device as the cause of abnormal reaction of the patient, or of later complication, without mention of misadventure at the time of the procedure; Z79.01 Long term (current) use of anticoagulants; Z82.49 Family history of ischemic heart disease and other diseases of the circulatory system; Z95.810 Presence of automatic (implantable) cardiac defibrillator; Y93.89 Activity, other specified; Y92.89 Other specified places as the place of occurrence of the external cause; Y99.8 Other external cause status
CPT/HCPCS: 36415; 71045; 80048; 82962; 85007; 85025; 85027; 85610; 85730; 87040; 87081; 96365; 96366; 96367; G0378; J1815; J2543